=== PATIENT | female | born 1985 | race Caucasian/White ===

== ENCOUNTER 2018-06-07 05:45 | Outpatient (CLI) | payer OTHER ==
[2018-06-08] MEDS ORDERED: PRENATAL TABLE1 EAC4 PO (10:14)
[2018-06-08] MEDS ORDERED: AMOXICILLIN500 MG PO (10:14)
[2018-06-08] MEDS ORDERED: IRON325 MG PO (10:14)
== END 2018-06-07 10:04 | disposition still patient (30) ==
LOC: OBS/DEL 05:45
DX: O47.1 False labor at or after 37 completed weeks of gestation (principal); Z34.03 Encounter for supervision of normal first pregnancy, third trimester

== ENCOUNTER 2018-06-07 20:49 | Inpatient (IN) | payer OTHER ==
[~2018-06-07] VITALS: Ht 162.6 cm; Wt 64.9 kg
[2018-06-08] MEDS ORDERED: PRENATAL TABLE1 EAC4 PO (10:14)
[2018-06-08] MEDS ORDERED: AMOXICILLIN500 MG PO (10:14)
[2018-06-08] MEDS ORDERED: IRON325 MG PO (10:14)
== END 2018-06-10 13:17 | DRG 805 ==
LOC: LDR 20:49 → SURG-SUITE 06-08 18:24 → OB/GYN 06-22 17:29
PROC: 4A1HXCZ Monitoring of Products of Conception, Cardiac Rate, External Approach (ICD-10-PCS; 2018-06-07)
PROC: 10E0XZZ Delivery of Products of Conception, External Approach (ICD-10-PCS; principal; 2018-06-08)
PROC: 4A033R1 Measurement of Arterial Saturation, Peripheral, Percutaneous Approach (ICD-10-PCS; 2018-06-08)
PROC: 0UQGXZZ Repair Vagina, External Approach (ICD-10-PCS; 2018-06-08)
DX: O71.4 Obstetric high vaginal laceration alone (principal); O41.1230 Chorioamnionitis, third trimester, not applicable or unspecified; Z37.0 Single live birth; Z3A.37 37 weeks gestation of pregnancy; Z22.330 Carrier of Group B streptococcus